=== PATIENT | male | born 1990 | race African-American/Black ===

== ENCOUNTER 2024-07-30 13:46 | Emergency (ER) | payer SELFPAY ==
[2024-07-30] MEDS: Triamcinolone Acetonide 40 MG/ML 1 ML SDV INJECT STA (14:24)
== END 2024-07-30 15:19 | disposition home or self-care (01) ==
LOC: MW.ED 13:46
DX: L30.9 Dermatitis, unspecified (principal); Z75.8 Other problems related to medical facilities and other health care; Z79.899 Other long term (current) drug therapy
CPT/HCPCS: 96372; 99282; J3301; 99283

== ENCOUNTER 2025-01-03 12:41 | Emergency (ER) | payer SELFPAY | END 2025-01-03 14:58 | disposition home or self-care (01) | LOC: MW.ED 12:41 | DX: L30.9 Dermatitis, unspecified (principal); Z79.899 Other long term (current) drug therapy; Z91.013 Allergy to seafood; Z75.8 Other problems related to medical facilities and other health care | CPT/HCPCS: 99283 ==